=== PATIENT | male | born 1990 ===

== ENCOUNTER 2018-12-12 08:44 | Inpatient (IN) | payer MEDICAID ==
[2018-12-12 09:08] VITALS: RESP 18; O2SAT 99
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
--- NOTE | 2018-12-12 10:27 | PCM.PSYCH ---
Initial Psychiatric Evaluation - Initial Psychiatric Evaluation Type of Admission: Voluntary Legal Status: Capacity Chief Complaint (in patient's own words): I was feeling depressed and suicidal. History of Present Illness and Precipitating Events: Patient is a 28 years old male, who was transferred from [facility], came to the ED with depressed mood and suicidal ideation. Patient reports history of few inpatient psychiatric hospitalizations. However he denies any follow-up with any psychiatrist. Patient reports that he is been drinking since 12 years of age. He reports of drinking 3-4 beers daily.. To xicology is positive for PCP as well, however patient denies. As per the patient yesterday he became increasingly depressed and developed suicidal ideation and came to the hospital to get help. He reports depressed mood, at times feelings of hopelessness and helplessness. He also reports poor sleep and poor appetite. He denies any auditory or visual hallucination and paranoia. He that last time he had a verbal altercation with the girlfriend, he wrote a note on Facebook that he wants to in peace. Girlfriend got concerned, and she called the police and patient was escorted to the ED for further evaluation. (Last time) Patient reports history of legal charges including high check in the car, trespassing and street fights. He reports that he spent 3 months in retirement, and currently he is on probation. Past psychiatric history None reported Past Psychiatric History - Past Psychiatric History Previous Treatment History: Inpatient Pertinent Medical Hx (Current Medical&Sleep Prob, Allergies): Allergies Allergy/AdvReac Type Severity Reaction Status Date / Time No Known Allergies Allergy Unverified 12/12/18 09:04 No Known Home Med 12/12/18 Review of Systems - Review of Systems All systems: reviewed and no additional remarkable complaints except - Psychiatric Psychiatric: Anxiety, Hopelessness, Irritability, Suicidal Ideation Mental Status Examination - Personal Presentation Personal Presentation: Looks stated age - Affect Affect: Constricted, Depressed - Motor Activity Motor Activity: Calm - Reliability in Providing Information Reliability in Providing Information: Fair - Speech Speech: Organized - Mood Mood: Depressed, Anxious - Formal Thought Process Formal Thought Process: Delusions, Loosening of associations - Obsessions/Compulsions Obsessions: No Compulsions: No - Cognitive Functions Orientation: Person, Place, Situation, Time Sensorium: Alert Attention/Concentration: Attentive Abstract Thinking: Winston Estimate of Intelligence: Below average Judgement: Imparied, as evidence by: Poor judgement, Imparied, as evidence by: Lack of insight into illness - Risk Risk: Suicidal, Diminished functioning - Limitations Limitations: Living alone DSM 5 DX - DSM 5 DSM 5 Diagnosis: Major depressive disorder recurrent severe without psychotic features Alcohol use disorder moderate - Recommended/Plan of Treatment Treatment Recommendations and Plan of Treatment: CBT Psychoeducation supportive therapy [place] therapy and group therapy and group therapy Augmentation Testing for insomnia Depakote stabilization of mood Trazodone for insomnia - Smoking Cessation Smoking Cessation Initiated: No
--- NOTE | 2018-12-12 12:20 | PCM.BM ---
<Alanis Grace - Last Filed: 12/12/18 12:18> Treatment Plan Problems - Problems identified on initial assessmt Alterate thought process Date Initiated: 12/12/18 Time Initiated: 09:45 Date resolved: 12/12/18 Assessment reference: NA Status: Active Ineffective coping skills Date Initiated: 12/12/18 Time Initiated: 09:45 Date resolved: 12/12/18 Assessment reference: NA Status: Active Treatment assets and liabiliti Patient Assests: insightful, resourceful, physically healthy Patient Liabilities: financial problems, substance abuse, legal issue - Milieu Protocol Maintain good personal hygiene: daily Encourage regular showers, daily Remind patient to perform daily oral care, daily Assist patient to perform ADL's Maintain personal safety: every shift Educate patient to report safety concerns to staff, every shift Monitor environment for contraband/sharps Medication safety: Monitor for expected outcome, potential side effects: every shift, Assess barriers to learning: every shift, Assess readiness for medication education: every shift <Jael Carter - Last Filed: 12/13/18 11:40> Family Contact Family involvement: Family/SO is involved Family contact: Patient declines to allow family contact at present - Goals for Treatment Patient goals for treatment: "I need an outpatient program." Discharge/Continuing Care - Education Needs Education Needs: Patient Medication, Patient Coping Skills - Discharge Discharge Criteria: Tolerates medication w/o severe side effects, Reduction of target symptoms Discharge to:: Home, With Family - Treatment Team Participation Discussed with Family/SO: No Was Patient/Family/SO present at Treatment Team Meeting: Yes
[2018-12-13 06:43] VITALS: TEMP 98.6
[2018-12-13 15:43] VITALS: BP 113/75; PULSE 63
--- NOTE | 2018-12-14 01:25 | PCM.PYCHPN ---
Psychiatric Progress Note - Psychiatric Progress Note Patient seen today, length of contact: 15 min Patient Chief Complaint: I was feeling depressed and suicidal. Medication Change: Yes Medical Record Reviewed: Yes Mental Status Examination - Cognitive Function Orientation: Person, Place, Situation, Time Memory: Intact Attention: WNL Association: WNL Fund of Knowledge: Poor - Mood Mood: Depressed, Anxious - Affect Affect: Constricted, Depressed - Speech Speech: Soft - Formal Thought Process Formal Thought Process: Delusions, Loosening of associations - Suicidal Ideation Suicidal Ideation: No - Homicidal Ideation Homicidal Ideation: No Goal/Treatment Plan - Goal/Treatment Plan Need for Continued Stay: Remain at risks for inpatient hospitalization, Severe depression anxiety Progress Toward Problem(s) and Goals/Treatment Plan: CBT Psychoeducation supportive therapy [place] therapy and group therapy and group therapy Neurontin for augmentation Depakote stabilization of mood Trazodone for insomnia
--- NOTE | 2018-12-14 22:12 | PCM.PYCHDC ---
Mental Status Examination - Mental Status Examination Orientation: Person, Place, Situation, Time Memory: Intact Mood: Neutral Affect: Other (Appropriate) Speech: Appropriate Attention: WNL Concentration: WNL Association: WNL Fund of Knowledge: WNL Formal Thought Process: No Impairment Description of patient's judgement and insight: Fair Psychotic Thoughts and Behaviors: None Suicidal Ideation: No Current Homicidal Ideation?: No Discharge Summary - Discharge Note Reason for Hospitalization: Major depressive disorder recurrent severe without psychotic features Alcohol use disorder moderate Laboratory Data: Reviewed Consultations:: List each consultation separately and include: 1. Reason for request. 2. Findings. 3. Follow-up Summary of Hospital Course include:: 1. Description of specific treatment plan utilized for patients during their course of treatmen. 2. Summarize the time- course for resolution of acute symptoms and/or regressed behaviors. 3. Describe issues identified and worked on during hospitalization. 4. Describe medication utilized. 5. Describe medical problems identified and treated. 6. Reassessment of suicide risk Summary of Hospital Course: Patient is a 28 years old male, who was transferred from [facility], came to the ED with depressed mood and suicidal ideation. Patient reports history of few inpatient psychiatric hospitalizations. However he denies any follow-up with any psychiatrist. Patient reports that he is been drinking since 12 years of age. He reports of drinking 3-4 beers daily.. Toxicology is positive for PCP as well, however patient denies. As per the patient yesterday he became increasingly depressed and developed suicidal ideation and came to the hospital to get help. He reports depressed mood, at times feelings of hopelessness and helplessness. He also reports poor sleep and poor appetite. He denies any auditory or visual hallucination and paranoia. He that last time he had a verbal altercation with the girlfriend, he wrote a note on Facebook that he wants to in peace. Girlfriend got concerned, and she called the police and patient was escorted to the ED for further evaluation. (Last time) Patient reports history of legal charges including high check in the car, trespassing and street fights. He reports that [facility] in [facility], and currently he is on probation. Past psychiatric history None reported During his stay in the hospital patient was treated with sertraline, gabapentin and other PRN medications. Patient started feeling better. Patient signed a 48-hour notice for discharge ending today. According to staff patient refused to rescind the notice. Education provided to complete the treatment, still patient refused. At the time of evaluation and discharge, patient was awake, alert and oriented x3. Patient had no delusions, no auditory or visual hallucinations, no suicidal ideations or homicidal ideations at the time of evaluation and discharged. Patient was discharged in a stable condition. - Final Diagnosis (DSM 5) Condition upon Discharge: GOOD Disposition: HOME/ ROUTINE - Smoking Cessation Smoking Cessation Medication prescribed: No - Antipsychotic Medications Pt discharged on 2 or more routine antipsychotic medications: No
[2018-12-15] MEDS ORDERED: Pneumococcal 23-Valent Vaccine IM ONE (10:00)
[2018-12-15] MEDS ORDERED: Influenza Vaccine 60 mcg/0.5 mL SYR (4YR UP) IM ONE (10:00)
== END 2018-12-14 12:39 | disposition home or self-care (01) | DRG 751 ==
LOC: C.ER 08:44 → C.5E 09:04
PROVIDERS: ADMIT Psychiatry & Neurology Psychiatry; ATTEND Psychiatry & Neurology Psychiatry
DX: F33.2 Major depressive disorder, recurrent severe without psychotic features (principal); R45.851 Suicidal ideations; Z65.3 Problems related to other legal circumstances; F10.20 Alcohol dependence, uncomplicated